=== PATIENT | female | born 1945 | race Caucasian/White ===

== ENCOUNTER 2017-11-10 13:43 | Day surgery (SDC) | payer MEDICARE ==
[~2017-11-10 13:43] MED LIST: Alendronate Sod10 MG PO; BENADRYL25 MG PO; CALCIUM + D3 E1 EACH; CETI10 PO; EYE VITAMIN-MI1 EACH PO; Excedrin Extra1 EACH PO; FAMO20 PO; FISH1000 PO; FLUSAL2505 IH; FLUT.05NI; FLUT1DIS5 INH; Fiber Tabs625 MG PO; Fish Oil Conc1000 MG PO; Flonase 0.05% N16 GM; Icaps Mv Table1 EACH PO; LEVO-T88 MCG PO; LEVSOD100 PO; LEVSOD88 PO; LISI5 PO; MELATONIN 5 MG1 EACH PO; MELATONIN5 M1 PO; MONT10T PO; Migraine Relie1 EACH PO; Norco 5-325 Ta1 EACH PO; Omeprazole20 M1; PRED20 PO; PROCODE120 PO; PROMETHAZINE-P118 M1 PO; Prinivil5 MG PO; Stool Softener100 MG PO; VITAMIN D2400 UNIT; Xalatan2.5 ML BOTHEYES
== END 2017-11-10 15:30 | disposition home or self-care (01) ==
LOC: ORSCSDS 13:43
PROVIDERS: Internal Medicine Gastroenterology
PROC: 0DBH8ZX Excision of Cecum, Via Natural or Artificial Opening Endoscopic, Diagnostic (ICD-10-PCS; principal; 2017-11-10 15:15)
PROC: 0DBM8ZX Excision of Descending Colon, Via Natural or Artificial Opening Endoscopic, Diagnostic (ICD-10-PCS; principal; 2017-11-10 15:15)
DX: Z12.11 Encounter for screening for malignant neoplasm of colon (principal); Z86.010 Personal history of colon polyps; D12.0 Benign neoplasm of cecum; K63.5 Polyp of colon; K57.30 Diverticulosis of large intestine without perforation or abscess without bleeding; J43.9 Emphysema, unspecified; E03.9 Hypothyroidism, unspecified; I10 Essential (primary) hypertension; E78.5 Hyperlipidemia, unspecified; Z87.891 Personal history of nicotine dependence; Z79.899 Other long term (current) drug therapy
CPT/HCPCS: 88305; J7120

== ENCOUNTER 2020-09-30 00:12 | Day surgery (SDC) | payer MEDICARE ==
[2020-09-30] MEDS ORDERED: METHOTREXATE2.5 M1 PO (14:04)
== END 2020-09-30 16:08 | disposition home or self-care (01) ==
LOC: ATC 00:12
DX: M05.79 Rheumatoid arthritis with rheumatoid factor of multiple sites without organ or systems involvement (principal); I10 Essential (primary) hypertension; E03.9 Hypothyroidism, unspecified; J44.9 Chronic obstructive pulmonary disease, unspecified; E78.5 Hyperlipidemia, unspecified; M19.90 Unspecified osteoarthritis, unspecified site; D84.9 Immunodeficiency, unspecified; H35.30 Unspecified macular degeneration; M81.0 Age-related osteoporosis without current pathological fracture; Z88.0 Allergy status to penicillin; Z79.82 Long term (current) use of aspirin; Z79.51 Long term (current) use of inhaled steroids; Z79.899 Other long term (current) drug therapy; Z87.891 Personal history of nicotine dependence
CPT/HCPCS: 96413; 96415; J1745; J7050

== ENCOUNTER 2020-11-25 00:27 | Day surgery (SDC) | payer MEDICARE ==
[~2020-11-25 00:27] MED LIST changes: +METHOTREXATE2.5 M1 PO
== END 2020-11-25 16:10 | disposition home or self-care (01) ==
LOC: ATC 00:27
DX: M05.79 Rheumatoid arthritis with rheumatoid factor of multiple sites without organ or systems involvement (principal); I10 Essential (primary) hypertension; J44.9 Chronic obstructive pulmonary disease, unspecified; J45.909 Unspecified asthma, uncomplicated; M19.90 Unspecified osteoarthritis, unspecified site; E78.5 Hyperlipidemia, unspecified; E03.9 Hypothyroidism, unspecified; M81.0 Age-related osteoporosis without current pathological fracture; D84.9 Immunodeficiency, unspecified; H35.30 Unspecified macular degeneration; M10.9 Gout, unspecified; Z88.0 Allergy status to penicillin; Z79.82 Long term (current) use of aspirin; Z79.51 Long term (current) use of inhaled steroids; Z79.899 Other long term (current) drug therapy; Z87.891 Personal history of nicotine dependence
CPT/HCPCS: 96413; 96415; J1745; J7050

== ENCOUNTER 2021-01-27 00:04 | Day surgery (SDC) | payer MEDICARE | END 2021-01-27 16:44 | disposition home or self-care (01) | LOC: ATC 00:04 | DX: M05.79 Rheumatoid arthritis with rheumatoid factor of multiple sites without organ or systems involvement (principal); D84.9 Immunodeficiency, unspecified; M19.042 Primary osteoarthritis, left hand; M19.041 Primary osteoarthritis, right hand; H35.30 Unspecified macular degeneration; M18.11 Unilateral primary osteoarthritis of first carpometacarpal joint, right hand | CPT/HCPCS: 96413; 96415; J1745; J7050 ==

== ENCOUNTER 2021-03-25 04:56 | Day surgery (SDC) | payer MEDICARE | END 2021-03-25 16:14 | disposition home or self-care (01) | LOC: ATC 04:56 | DX: M05.79 Rheumatoid arthritis with rheumatoid factor of multiple sites without organ or systems involvement (principal) | CPT/HCPCS: 96413; 96415; J1745; J7050 ==

== ENCOUNTER 2021-05-23 01:25 | Day surgery (SDC) | payer MEDICARE | END 2021-05-23 11:37 | disposition home or self-care (01) | LOC: ATC 01:25 | DX: M05.79 Rheumatoid arthritis with rheumatoid factor of multiple sites without organ or systems involvement (principal); M19.049 Primary osteoarthritis, unspecified hand; H35.30 Unspecified macular degeneration; Z79.899 Other long term (current) drug therapy | CPT/HCPCS: 96413; 96415; J1745; J7050 ==

== ENCOUNTER 2021-08-01 01:37 | Day surgery (SDC) | payer MEDICARE ==
[~2021-08-01] VITALS: Wt 61.9 kg
== END 2021-08-01 16:42 | disposition home or self-care (01) ==
LOC: ATC 01:37
DX: M05.79 Rheumatoid arthritis with rheumatoid factor of multiple sites without organ or systems involvement (principal)
CPT/HCPCS: 96413; 96415; J1745; J7050

== ENCOUNTER 2021-09-26 01:28 | Day surgery (SDC) | payer MEDICARE ==
[~2021-09-26] VITALS: Wt 60.9 kg
== END 2021-09-26 16:30 | disposition home or self-care (01) ==
LOC: ATC 01:28
DX: M05.79 Rheumatoid arthritis with rheumatoid factor of multiple sites without organ or systems involvement (principal); D84.9 Immunodeficiency, unspecified; M15.9 Polyosteoarthritis, unspecified; Z79.1 Long term (current) use of non-steroidal anti-inflammatories (NSAID)
CPT/HCPCS: J1745; J7050

== ENCOUNTER 2021-11-21 00:12 | Day surgery (SDC) | payer MEDICARE | END 2021-11-21 16:12 | disposition home or self-care (01) | LOC: ATC 00:12 | DX: M05.79 Rheumatoid arthritis with rheumatoid factor of multiple sites without organ or systems involvement (principal); M19.042 Primary osteoarthritis, left hand; M19.041 Primary osteoarthritis, right hand; Z79.1 Long term (current) use of non-steroidal anti-inflammatories (NSAID); Z79.899 Other long term (current) drug therapy | CPT/HCPCS: J1745; J7050 ==

== ENCOUNTER → 2021-12-14 | Outpatient (CLI) | payer MEDICARE | END | disposition home or self-care (01) | LOC: LAB 13:39 → LAB SHORT 13:39 | DX: L03.012 Cellulitis of left finger (principal) | CPT/HCPCS: 87070; 87186; 87205 ==

== ENCOUNTER 2022-01-16 03:11 | Day surgery (SDC) | payer MEDICARE ==
[~2022-01-16] VITALS: Wt 61.6 kg
== END 2022-01-16 16:46 | disposition home or self-care (01) ==
LOC: ATC 03:11
DX: M05.79 Rheumatoid arthritis with rheumatoid factor of multiple sites without organ or systems involvement (principal)
CPT/HCPCS: J1745; J7050; Q5103

== ENCOUNTER 2022-05-21 01:48 | Day surgery (SDC) | payer MEDICARE ==
--- NOTE | 2022-05-21 16:01 | NUR ---
PATIENT CAME IN FOR HER APPOINTMENT AND REPORTS THAT SHE IS ON DAY 3/10 OF ANTIBIOTICS AND STILL FEELS "LIKE I'M UNDERWATER" ATTEMPTED 3 TIMES TO CALL HER DOCTORS OFFICE AND WAS UNABLE TO REACH THEM. PATIENT WAITED ABOUT 30 MINUTES FOR RETURN CALL AND THEN LEFT. PATIENT RESCHEDULED 10 DAYS AFTER THE LAST DAY OF HER ABX. DR LOCKE OFFICE RETURNED MY CALL LATER THIS AFTERNOON AND SAID THEY DID WANT TO HOLD INFUSION AND TO KEEP HER RESCHEDULED APPT.
== END 2022-05-21 23:48 | disposition home or self-care (01) ==
LOC: ATC 01:48
DX: M05.79 Rheumatoid arthritis with rheumatoid factor of multiple sites without organ or systems involvement (principal)

== ENCOUNTER 2022-06-10 01:31 | Day surgery (SDC) | payer MEDICARE | END 2022-06-10 16:15 | disposition home or self-care (01) | LOC: ATC 01:31 | DX: M05.79 Rheumatoid arthritis with rheumatoid factor of multiple sites without organ or systems involvement (principal) | CPT/HCPCS: 96413; 96415; J7050; Q5103 ==

== ENCOUNTER 2022-08-06 04:05 | Day surgery (SDC) | payer MEDICARE | END 2022-08-06 16:19 | disposition home or self-care (01) | LOC: ATC 04:05 | DX: M05.79 Rheumatoid arthritis with rheumatoid factor of multiple sites without organ or systems involvement (principal); M17.0 Bilateral primary osteoarthritis of knee; M81.0 Age-related osteoporosis without current pathological fracture | CPT/HCPCS: J7050; Q5103 ==

== ENCOUNTER → 2022-09-22 | Outpatient (CLI) | payer MEDICARE ==
[2022-09-22 12:05] LABS: Source, Urine Clean Catch
[2022-09-22 18:02] LABS: Appearance, Urine Clear (Clear); Bilirubin, Urine Neg (Neg); Blood, Urine Neg (Neg); Color, Urine Yellow (P-Yellow); Glucose Qualitative, Urine Neg (Neg); Ketones, Urine Neg (Neg); Leukocyte Esterase, Urine 1+ (Neg); Nitrite, Urine Neg (Neg); Protein, Urine Neg (Neg); Specific Gravity, Urine 1.025 (1.003-1.022); Urobilinogen, Urine NORM (Normal)
[2022-09-22 18:52] LABS: Red Blood Cells, Urine 0-2 /hpf (0-2); Uric Acid Crystals Mod /hpf
[2022-09-22 18:53] LABS: Bacteria Few /hpf; Mucus Mod (0-Heavy); Squamous Epithelial Cells Rare /hpf (Few)
== END | disposition home or self-care (01) ==
LOC: LAB 08:00 → LAB SHORT 08:00
PROVIDERS: Nurse Practitioner Family
DX: E78.5 Hyperlipidemia, unspecified (principal)
CPT/HCPCS: 81001; 87086

== ENCOUNTER 2022-12-01 00:43 | Day surgery (SDC) | payer MEDICARE | END 2022-12-01 16:34 | disposition home or self-care (01) | LOC: ATC 00:43 | DX: M05.79 Rheumatoid arthritis with rheumatoid factor of multiple sites without organ or systems involvement (principal); M17.0 Bilateral primary osteoarthritis of knee; M81.0 Age-related osteoporosis without current pathological fracture | CPT/HCPCS: J7050; Q5103 ==

== ENCOUNTER 2023-05-19 01:34 | Day surgery (SDC) | payer MEDICARE ==
[2023-05-19 14:09] VITALS: BP 148/74
== END 2023-05-19 16:31 | disposition home or self-care (01) ==
LOC: ATC 01:34
DX: M05.79 Rheumatoid arthritis with rheumatoid factor of multiple sites without organ or systems involvement (principal)
CPT/HCPCS: 96365; 96366; 96413; 96415; J7050; Q5103

== ENCOUNTER 2023-09-13 01:55 | Day surgery (SDC) | payer MEDICARE ==
[~2023-09-13] VITALS: Wt 57.8 kg
[2023-09-13 13:38] VITALS: BP 137/76
== END 2023-09-13 16:14 | disposition home or self-care (01) ==
LOC: ATC 01:55
DX: M05.79 Rheumatoid arthritis with rheumatoid factor of multiple sites without organ or systems involvement (principal); M81.0 Age-related osteoporosis without current pathological fracture; M16.9 Osteoarthritis of hip, unspecified
CPT/HCPCS: 96413; 96415; J7050; Q5103

== ENCOUNTER 2023-11-08 03:21 | Day surgery (SDC) | payer MEDICARE ==
[2023-11-08 13:40] VITALS: BP 163/74
[2023-11-08 16:18] VITALS: BP 132/69
== END 2023-11-08 16:20 | disposition home or self-care (01) ==
LOC: ATC 03:21
DX: M05.79 Rheumatoid arthritis with rheumatoid factor of multiple sites without organ or systems involvement (principal)
CPT/HCPCS: 96413; 96415; J7050; Q5103

== ENCOUNTER 2024-05-02 08:41 | Day surgery (SDC) | payer MEDICARE ==
[2024-05-02 13:47] VITALS: BP 143/68
[2024-05-02] MEDS ORDERED: Infliximab-DYYB 200 MG in NS 250 ML IV SCH (13:50)
== END 2024-05-02 16:53 | disposition home or self-care (01) ==
LOC: ATC 08:41
DX: M05.79 Rheumatoid arthritis with rheumatoid factor of multiple sites without organ or systems involvement (principal); M19.049 Primary osteoarthritis, unspecified hand; M81.0 Age-related osteoporosis without current pathological fracture
CPT/HCPCS: 96413; 96415; J7050; Q5103

== ENCOUNTER 2024-06-28 03:42 | Day surgery (SDC) | payer MEDICARE ==
[2024-06-28 14:27] VITALS: BP 131/76
[2024-06-28] MEDS ORDERED: Infliximab-DYYB 200 MG in NS 250 ML IV SCH (14:35)
== END 2024-06-28 17:05 | disposition home or self-care (01) ==
LOC: ATC 03:42
DX: M05.79 Rheumatoid arthritis with rheumatoid factor of multiple sites without organ or systems involvement (principal)
CPT/HCPCS: 96413; 96415; J7050; Q5103

== ENCOUNTER 2024-08-23 04:03 | Day surgery (SDC) | payer MEDICARE ==
[~2024-08-23] VITALS: Wt 59.2 kg
[2024-08-23 14:33] VITALS: BP 133/70
[2024-08-23] MEDS ORDERED: Infliximab-DYYB 200 MG in NS 250 ML IV SCH (14:40)
== END 2024-08-23 17:27 | disposition home or self-care (01) ==
LOC: ATC 04:03
DX: M05.79 Rheumatoid arthritis with rheumatoid factor of multiple sites without organ or systems involvement (principal); M19.041 Primary osteoarthritis, right hand; M81.0 Age-related osteoporosis without current pathological fracture; D84.9 Immunodeficiency, unspecified; Z79.899 Other long term (current) drug therapy
CPT/HCPCS: 96413; 96415; J7050; Q5103

== ENCOUNTER 2024-10-23 03:37 | Day surgery (SDC) | payer MEDICARE ==
[2024-10-23] MEDS ORDERED: DiphenhydrAMINE HCL 25 MG Cap PO SCH (07:15)
[2024-10-23] MEDS ORDERED: Acetaminophen 325 MG TABLET PO SCH (07:15)
[2024-10-23 15:04] VITALS: BP 155/65
[2024-10-23] MEDS ORDERED: Infliximab-DYYB 200 MG in NS 250 ML IV SCH (15:20)
== END 2024-10-23 17:42 | disposition home or self-care (01) ==
LOC: ATC 03:37
DX: M05.79 Rheumatoid arthritis with rheumatoid factor of multiple sites without organ or systems involvement (principal)
CPT/HCPCS: 96413; 96415; J7050; Q5103

== ENCOUNTER 2024-12-19 00:11 | Day surgery (SDC) | payer MEDICARE ==
[2024-12-19 14:13] VITALS: BP 158/75
[2024-12-19] MEDS ORDERED: NS IV SCH (14:20)
[2024-12-19] MEDS ORDERED: INFLIXIMAB DYYB IV SCH (14:20)
== END 2024-12-19 16:43 | disposition home or self-care (01) ==
LOC: ATC 00:11
DX: M05.79 Rheumatoid arthritis with rheumatoid factor of multiple sites without organ or systems involvement (principal); M81.0 Age-related osteoporosis without current pathological fracture
CPT/HCPCS: 96413; 96415; J7050; Q5103

== ENCOUNTER 2025-03-12 00:45 | Day surgery (SDC) | payer MEDICARE ==
[~2025-03-12] VITALS: Wt 58.7 kg
[2025-03-12 14:08] VITALS: BP 154/74
[2025-03-12] MEDS ORDERED: Infliximab-DYYB 200 MG in NS 250 ML IV SCH (14:20)
[2025-03-12 16:51] LABS: BASOPHILS ABSOLUTE AUTO 0.08 K/mm3 (0.00-0.23); BASOPHILS PERCENT AUTO 1 % (0-2); EOSINOPHILS ABSOLUTE AUTO 0.73 K/mm3 (0.00-0.68); EOSINOPHILS PERCENT AUTO 8 % (0-6); Hematocrit 42.9 % (33.0-51.0); Hemoglobin 14.1 g/dL (11.5-16.0); IMMATURE GRAN ABSOLUTE AUTO 0.03 K/mm3 (0.00-0.10); IMMATURE GRAN PERCENT AUTO 0 % (0-1); LYMPHOCYTES ABSOLUTE AUTO 1.83 K/mm3 (0.84-5.20); LYMPHOCYTES PERCENT AUTO 21 % (21-46); MONOCYTES ABSOLUTE AUTO 0.73 K/mm3 (0.16-1.47); MONOCYTES PERCENT AUTO 8 % (4-13); Mean Corpuscular HGB 29.4 pg (26.0-34.0); Mean Corpuscular HGB Conc 32.9 g/dL (31.5-36.5); Mean Corpuscular Volume 89 fL (80-100); Mean Platelet Volume 10.7 fL (9.1-12.4); NEUTROPHILS ABSOLUTE AUTO 5.52 K/mm3 (1.96-9.15); NEUTROPHILS PERCENT AUTO 62 % (41-73); Platelet Count 271 K/mm3 (150-400); RDW Coefficient Variation 14.9 % (11.7-14.2); RDW Standard Deviation 48.8 fL (35.1-46.3); White Blood Cell Count 8.92 K/mm3 (4.00-11.30)
[2025-03-12 17:22] LABS: Albumin, Blood 3.2 g/dL (3.4-5.0); Albumin/Globulin Ratio 0.8 (0.8-1.8); Bilirubin, Total 0.4 mg/dL (0.1-1.0); Bun/Creatinine Ratio 29.1 (12.0-20.0); Calcium, Blood 9.3 mg/dL (8.5-10.1); Creatinine, Blood 0.72 mg/dL (0.40-1.00); Globulin, Blood 3.9 g/dL (2.2-4.0); Potassium, Blood 3.8 mmol/L (3.5-5.5); Total Protein, Blood 7.1 g/dL (6.4-8.2)
== END 2025-03-12 16:49 | disposition home or self-care (01) ==
LOC: ATC 00:45
PROVIDERS: Physician Assistant
DX: M05.79 Rheumatoid arthritis with rheumatoid factor of multiple sites without organ or systems involvement (principal); Z79.899 Other long term (current) drug therapy; Z88.1 Allergy status to other antibiotic agents
CPT/HCPCS: 80053; 85025; 96413; 96415; J7050; Q5103

== ENCOUNTER 2025-05-07 00:36 | Day surgery (SDC) | payer MEDICARE ==
[~2025-05-07] VITALS: Wt 58.1 kg
[2025-05-07] MEDS ORDERED: Infliximab-DYYB 200 MG in NS 250 ML IV SCH (14:10)
[2025-05-07 14:48] VITALS: BP 139/71
== END 2025-05-07 16:54 | disposition home or self-care (01) ==
LOC: ATC 00:36
DX: M05.79 Rheumatoid arthritis with rheumatoid factor of multiple sites without organ or systems involvement (principal); M15.9 Polyosteoarthritis, unspecified; M81.0 Age-related osteoporosis without current pathological fracture; Z79.631 Long term (current) use of antimetabolite agent
CPT/HCPCS: 96413; 96415; J7050; Q5103

== ENCOUNTER 2025-07-02 14:20 | Day surgery (SDC) | payer MEDICARE ==
[2025-07-02 14:20] VITALS: BP 133/70
[2025-07-02] MEDS ORDERED: Infliximab-DYYB 200 MG in NS 250 ML IV SCH (14:30)
== END 2025-07-02 16:52 | disposition home or self-care (01) ==
LOC: ATC 14:20
DX: M05.79 Rheumatoid arthritis with rheumatoid factor of multiple sites without organ or systems involvement (principal); M81.0 Age-related osteoporosis without current pathological fracture; Z79.899 Other long term (current) drug therapy
CPT/HCPCS: 96413; 96415; J7050; Q5103

== ENCOUNTER 2025-08-08 09:34 | Day surgery (SDC) | payer MEDICARE ==
[~2025-08-08] VITALS: Ht 152.4 cm; Wt 57.5 kg
[~2025-08-08 09:34] MED LIST changes: +Balanced Salt Epinephrine Irrigation Solution 500 mL IR SCH; +Moxifloxacin HCL 0.5 MG/0.1 ML 0.4MLSYR LEFTEYE SCH; +Ondansetron 4 MG SoluTab MM PRN; +PHENYLEPHRINE\\TROPICAMIDE\\TETRACAINE OPHTHALMIC DILATING SOLN LEFTEYE PRN; +Povidone-Iodine 450 DROP/30 ML Solution LEFTEYE SCH; +Povidone-Iodine 450 DROP/30 ML Solution ONE; +Tetracaine HCl/Pf 0.5% Opth Soln 4 ml ONE; +diazePAM 5 MG,diazePAM 2 MG PO SCH
--- NOTE | 2025-08-08 11:03 | NUR ---
08/08/25 1103 Lydia Alas 1057 BP:149/80 HR:68 O2:97% RESP:16
[2025-08-08 11:25] VITALS: BP 140/74
[2025-08-08] MEDS ORDERED: ALBU90OI INH (14:25)
[2025-08-08] MEDS ORDERED: ALPR.5 PO (14:26)
== END 2025-08-08 11:32 | disposition home or self-care (01) ==
LOC: ORSCSDS 09:34
PROVIDERS: Student in an Organized Health Care Education/Training Program
PROC: 08RK3JZ Replacement of Left Lens with Synthetic Substitute, Percutaneous Approach (ICD-10-PCS; principal; 2025-08-08 11:00)
DX: H25.813 Combined forms of age-related cataract, bilateral (principal); I10 Essential (primary) hypertension; E78.5 Hyperlipidemia, unspecified; E03.9 Hypothyroidism, unspecified; M06.9 Rheumatoid arthritis, unspecified; Z79.899 Other long term (current) drug therapy; Z87.891 Personal history of nicotine dependence
CPT/HCPCS: A9270; J2003; V2632

== ENCOUNTER 2025-08-15 10:29 | Day surgery (SDC) | payer MEDICARE ==
[~2025-08-15] VITALS: Ht 152.4 cm; Wt 56.7 kg
[~2025-08-15 10:29] MED LIST changes: +ALBU90OI INH; +ALPR.5 PO; -Moxifloxacin HCL 0.5 MG/0.1 ML 0.4MLSYR LEFTEYE SCH; +Moxifloxacin HCL 0.5 MG/0.1 ML 0.4MLSYR RIGHTEYE SCH; -PHENYLEPHRINE\\TROPICAMIDE\\TETRACAINE OPHTHALMIC DILATING SOLN LEFTEYE PRN; +PHENYLEPHRINE\\TROPICAMIDE\\TETRACAINE OPHTHALMIC DILATING SOLN RIGHTEYE PRN; -Povidone-Iodine 450 DROP/30 ML Solution LEFTEYE SCH; +Povidone-Iodine 450 DROP/30 ML Solution RIGHTEYE SCH
--- NOTE | 2025-08-15 10:51 | NUR ---
08/15/25 1051 RAYMOND BLOOM PT REPORTS BOWEL INCONTINENCE WHILE AWAITING ADMISSION, "DEPENDS" REMOVED. PT STATES THIS IS NOT A USUAL OCCURENCE. DECLINES ASSIST/ SUPPLIES AT THIS TIME.
--- NOTE | 2025-08-15 11:28 | NUR ---
08/15/25 1128 Zoila Brar VITALS AT 1128 BP: 121/63 P: 69 O2: 99% WITH 9 LITERS OF BLOW BY OXYGEN
[2025-08-15 11:45] VITALS: BP 132/79
== END 2025-08-15 11:53 | disposition home or self-care (01) ==
LOC: ORSCSDS 10:29
PROVIDERS: Student in an Organized Health Care Education/Training Program
PROC: 08RJ3JZ Replacement of Right Lens with Synthetic Substitute, Percutaneous Approach (ICD-10-PCS; principal; 2025-08-15 11:30)
DX: H25.811 Combined forms of age-related cataract, right eye (principal); Z96.1 Presence of intraocular lens; Z87.891 Personal history of nicotine dependence; I10 Essential (primary) hypertension; E78.5 Hyperlipidemia, unspecified; E03.9 Hypothyroidism, unspecified; M06.9 Rheumatoid arthritis, unspecified; M10.9 Gout, unspecified; Z79.899 Other long term (current) drug therapy
CPT/HCPCS: A9270; V2632

== ENCOUNTER 2025-08-27 01:17 | Day surgery (SDC) | payer MEDICARE ==
[~2025-08-27] VITALS: Wt 58.0 kg
[~2025-08-27 01:17] MED LIST changes: -Balanced Salt Epinephrine Irrigation Solution 500 mL IR SCH; -Moxifloxacin HCL 0.5 MG/0.1 ML 0.4MLSYR RIGHTEYE SCH; -Ondansetron 4 MG SoluTab MM PRN; -PHENYLEPHRINE\\TROPICAMIDE\\TETRACAINE OPHTHALMIC DILATING SOLN RIGHTEYE PRN; -Povidone-Iodine 450 DROP/30 ML Solution ONE; -Povidone-Iodine 450 DROP/30 ML Solution RIGHTEYE SCH; -Tetracaine HCl/Pf 0.5% Opth Soln 4 ml ONE; -diazePAM 5 MG,diazePAM 2 MG PO SCH
[2025-08-27 14:29] VITALS: BP 150/74
[2025-08-27] MEDS ORDERED: Infliximab-DYYB 200 MG in NS 250 ML IV SCH (14:40)
== END 2025-08-27 16:55 | disposition home or self-care (01) ==
LOC: ATC 01:17
DX: M05.79 Rheumatoid arthritis with rheumatoid factor of multiple sites without organ or systems involvement (principal); M81.0 Age-related osteoporosis without current pathological fracture; M19.90 Unspecified osteoarthritis, unspecified site
CPT/HCPCS: 96413; 96415; J7050; Q5103

== ENCOUNTER 2025-10-22 02:45 | Day surgery (SDC) | payer MEDICARE ==
[~2025-10-22] VITALS: Wt 55.6 kg
[2025-10-22 14:30] VITALS: BP 143/83
[2025-10-22] MEDS ORDERED: Infliximab-DYYB 200 MG in NS 250 ML IV SCH (14:30)
== END 2025-10-22 16:52 | disposition home or self-care (01) ==
LOC: ATC 02:45
DX: M05.79 Rheumatoid arthritis with rheumatoid factor of multiple sites without organ or systems involvement (principal); M81.0 Age-related osteoporosis without current pathological fracture
CPT/HCPCS: 96413; 96415; J7050; Q5103